=== PATIENT | female | born 1995 | race Caucasian/White ===

== ENCOUNTER 2017-03-25 11:00 | Inpatient (IN) | payer MEDICAID ==
[~2017-03-25] VITALS: Ht 168.9 cm; Wt 77.7 kg
--- NOTE | ~2017-03-25 | CN ---
PATIENT NAME:LUKE LUNA MEDICAL RECORD: [id number] : 97 LOCATION:[id number] ADMIT DATE: 03/25/17 ACCOUNT: [id number] CONSULTING PHYSICIAN: JOSE MARTIN SAUL MD REFERRING PHYSICIAN: BÁRBARA RESENDIZ MD DATE OF CONSULTATION: 03/26/2017 CARDIOLOGY CONSULTATION DIAGNOSIS: Tachycardia. HISTORY OF PRESENT ILLNESS: Mrs. Luna delivered last night. Her rate went up to the 120s. Today her heart rates in the 90s. She has not had palpitations in the past. She did not feel like palpitation. She was not hemodynamically compromised. PHYSICAL EXAMINATION: GENERAL APPEARANCE: Well-nourished, well-developed, appears stated age. Level of distress, comfortable. PSYCHIATRIC: Mental status, alert, normal affect. Orientation, oriented to time, place and person. EYES: Lids and conjunctiva, noninjected. No discharge, no pallor. ENT: Lips, teeth, gums, normal dentition. Oropharynx, no cyanosis, no pallor. NECK: Carotid arteries, bilateral normal upstroke, no bruits, no thrills. JUGULAR VEINS: No jugular venous pressure or distention. CERVICAL LYMPH NODES: Nontender, nonenlarged. THYROID: Not enlarged. Nontender. No nodules. LUNGS: Respiratory effort, unlabored. CHEST: Normal curvature. No thoracic deformity. No chest wall tenderness. Percussion, resonant. Auscultation, clear. No wheezes, no rales, no rhonchi. CARDIOVASCULAR: Precordial exam, nondisplaced. No heaves or pericardial thrills. Rate and rhythm, regular. Heart sounds, normal S1, normal S2. No S3, no gallop, no rub. Systolic murmur, not heard. Diastolic murmur, not heard. EXTREMITIES: No cyanosis, no edema. Peripheral pulses, full and equal in all extremities, except as noted. No bruits appreciated. ABDOMEN: Soft, nondistended. Normal aorta. No bruit. Nontender. No masses. Liver, nontender, no hepatomegaly. Spleen, nontender, no splenomegaly. MUSCULOSKELETAL: No joint tenderness. No joint swelling. No erythema. NEUROLOGICAL: Normal gait, normal strength, normal tone. SKIN: Warm and dry. REVIEW OF SYSTEMS: The patient reports easy bruising but reports no swollen glands. The patient reports no fever, no night sweats, no significant weight gain, no significant weight loss. No significant exercise tolerance. The patient reports no dry eyes, no irritation, no vision change. Patient reports no difficulty hearing and no ear pain. Patient reports no frequent nose bleeds or nose and sinus problems. Patient reports on arm pain on exertion. No shortness of breath while lying down. No history of heart murmur. Patient reports no cough, no wheezing or coughing up blood. Patient reports no abdominal pain, no vomiting. Normal appetite. No diarrhea and not vomiting blood. No nausea and no constipation. Patient reports no incontinence. No difficulty urinating. No hematuria. No increased frequency. Patient reports no muscle aches. No weakness, no arthralgias, no back pain. No swelling of the extremities. Patient reports no abnormal mole, no jaundice, no rashes. Reports no loss of consciousness. No weakness and no numbness. No seizures, dizziness, CONSULT REPORT [id number] WOODY,LUKE or headaches. The patient reports no depression, no sleep disturbance, feeling safe in a relationship and no alcohol abuse. Patient reports on fatigue. Reports no runny nose or sinus pressure. No itching, no hives, and no frequent sneezing. OVERALL IMPRESSION: Physiological response to labor and delivery. No other cardiac workup treatment is necessary. TRANSINT:[id number] Voice Confirmation ID: [id number] DOCUMENT ID: [id number] JOSE MARTIN SAUL MD CC: [id number] DICTATION DATE: 03/26/17 1207 HOME HEALTH CARE CASE MANAGER: 03/26/17 1751 [facility] [place] [id number] [place] [address]
[~2017-03-25 11:00] MED LIST: IBUPROFEN600 MG PO; KEFLEX500 MG PO; PERCOCET 5-3251 TAB PO
[2017-03-25] MEDS ORDERED: PRENATAL COMPLE1 TAB PO (12:28)
[2017-03-25] MEDS ORDERED: FERROUS SULFAT325 MG (12:30)
[2017-03-25 12:31] VITALS: BP 121/78; Ht 168.9 cm; Wt 77.7 kg
[2017-03-25 13:05] LABS: HEMOGLOBIN 9.6 g/dL (12-16); MCV 80.7 fL (80.0-100.0); MEAN PLATELET VOLUME 11.2 fL (7.4-10.4); RBC 3.84 10x6/uL (4.00-5.40); WBC 15.8 10x3/uL (4.8-10.8)
[2017-03-25 13:12] LABS: APPEARANCE CLOUDY (CLEAR); BILIRUBIN NEGATIVE (NEGATIVE); COLOR YELLOW (YELLOW); GLUCOSE NEGATIVE (NEGATIVE); KETONE NEGATIVE (NEGATIVE); LEUKOCYTE ESTERASE 1+ (NEGATIVE); NITRITE NEGATIVE (NEGATIVE); PROTEIN NEGATIVE (NEGATIVE); UROBILINOGEN NORMAL (NORMAL)
[2017-03-25 13:13] LABS: BACTERIA MODERATE /hpf (NONE SEEN); EPITHELIAL CELLS 25-50 /hpf (0-5); MUCUS <1+ /lpf (NONE SEEN); RED CELLS - URINE 0-5 /hpf (0-5)
[2017-03-25 19:26] VITALS: BP 129/73
--- NOTE | 2017-03-25 19:34 | NUR ---
PT RECEIVED TO MY CARE IN LDR5. PT RESTING IN BED IN HIGH FOWLERS POSITION, VISITING WITH FAMILY, IN NO ACUTE DISTRESS. PT IS A 22YO G2 NOW P2 WITH OF VIABLE MALE TODAY @ 1658. PT WITH 2ND DEGREE ML LACERATION AND REPAIR. AAOX3. HR REGULAR WITH HR 131. ABDOMEN SOFT AND NON TENDER. BS ACTIVE TIMES 4. FUNDUS FIRM AND ML @ U/-3. LOCHIA RUBRA SMALL. PERINIUM APPEARS TO BE INTACT. ROSA PAD AND PANTIES IN PLACE. PT HAS NOT VOIDED SINCE . PT TOLERATING REGULAR DIET WITHOUT DIFFICULTY. PT HAS NOT PASSED GAS SINCE OR HAD A BM. NO SWELLING NOTED TO UPPER OR LOWER EXTREMITIES BILATERALLY. PT WITH EPIDURAL CATHETER IN PLACE, NOT INFUSING. LOWER EXTREMITIES REMAIN SLIGHTLY NUMB AFTER EPIDURAL PLACEMENT. WILL WAIT TO AMBULATE. 18G SL IN RIGHT HAND, FLUSHED WITH 5CC NS WITHOUT DIFFICULTY. NO REDNESS OR EDEMA NOTED AT SITE. PT DENIES ANY PAIN AT THIS TIME. BED IN LOW POSITION, SIDE RAILS UP TIMES 2, CALL LIGHT AND PHONE IN REACH. FAMILY AT PT BS TIMES 3 FOR SUPPORT AND ASSISTANCE. WILL CONT TO MONITOR PT STATUS.
--- NOTE | 2017-03-25 20:15 | NUR ---
RN TO PT BS. PT STATES SHE FEELS SHE CAN WALK AT THIS TIME. PT AMBULATED TO BR WITH MINIMAL ASSISTANCE. PT ABLE TO VOID. PT USED BETADINE WASH WITH RN INSTRUCTION. PT CLEANED SELF WITH WARM WET WASHCLOTHES. ROSA PAD AND PANTIES PLACED. EPIDURAL REMOVED, TIP INTACT. TIP SHOWN TO PT FOR VERIFICATION. PT PLACED STREET CLOTHES. PT AMBULATED TO CLEAN PP ROOM 1257 TO CONT PP CARE. PT DENIES ANY FURTHER NEEDS AT THIS TIME. BED IN LOW POSITION, SIDE RAILS UP TIMES TWO, FAMILY AT PT BS TIMES ONE FOR SUPPORT AND ASSISTANCE. WILL CONT TO MONITOR PT STATUS.
--- NOTE | 2017-03-25 21:09 | NUR ---
RN TO PT BS FOR ROUNDS. PT SITTING ON COUCH, HOLDING . PT IN NO ACUTE DISTRESS. PT REQUESTS NEW BREAST SHIELD. PROVIDED AT THIS TIME. PT DENIES ANY FURTHER NEEDS AT THIS TIME. BED IN LOW POSITION, SIDE RAILS UP TIMES 2, CALL LIGHT AND PHONE IN REACH. MULTIPLE FAMILY MEMBERS AT PT BS FOR SUPPORT AND ASSISTANCE. WILL CONT TO MONITOR PT STATUS.
--- NOTE | 2017-03-25 21:27 | NUR ---
DR. RESENDIZ NOTIFIED OF PT HR THROUGH LABOR AND CURRENT HR. PER MD WILL OBTAIN EKG NOW AND CBC. WILL NOTIFY MD OF RESULTS.
[2017-03-25 21:39] VITALS: BP 138/79
--- NOTE | 2017-03-25 21:40 | NUR ---
ROSAMARIA WITH RESPIRATORY THERAPY AT PT BS FOR EKG.
--- NOTE | 2017-03-25 21:41 | NUR ---
EKG WITH SINUS TACH.
--- NOTE | 2017-03-25 21:43 | NUR ---
DR. RESENDIZ CALLED AND NOTIFIED OF EKG RESULTS. PER MD, WILL PERFORM CT OF CHEST PER PE PROTOCOL, GIVE PT 1L NS BOLUS, DRAW STAT CBC AND CMP, PERFORM PULSE OX READING, AND PERFORM I&O'S ON PT'S. ORDERS PLACED AND NOTED.
--- NOTE | 2017-03-25 21:50 | NUR ---
RADIOLOGY CALLED AND NOTIFIED OF NEED FOR CTA.
--- NOTE | 2017-03-25 22:03 | NUR ---
LAB RECALLED FOR BLOOD DRAW DUE TO CT REQUESTING RESULTS OF BUN AND CREATININE PRIOR TO CT SCAN. AIDE, IN LAB STATES SHE WILL COME REMY.
--- NOTE | 2017-03-25 22:08 | NUR ---
CBC AND CMP DRAWN TIMES 1 STICK BY RN TO LEFT AC WITH BUTTERFLY NEEDLE. NS BOLUS STARTED TO INFUSE VIA GRAVITY VIA 18 G IV IN RIGHT HAND. I&O INSTRUCTIONS DISCUSSED WITH PT, VERBALIZED UNDERSTANDING. POC DISCUSSED WITH PT AND MOTHER AT . QUESTIONS ANSWERED. WILL CONT TO MONITOR PT STATUS.
--- NOTE | 2017-03-25 22:13 | NUR ---
LAB HERE. CBC AND CMP SENT TO LAB FOR STAT ANALYASIS.
[2017-03-25 22:19] LABS: BASOPHILS 0.1 % (0-2); EOSINOPHILS 0.1 % (0-7); HEMATOCRIT 29.2 % (36.0-48.0); HEMOGLOBIN 9.1 g/dL (12-16); IMMATURE GRANULOCYTES 0.4 % (0-5); LYMPHOCYTES 7.8 % (15-50); MCH 25.2 pg (26.0-34.0); MCHC 31.2 g/dL (31.0-37.0); MCV 80.9 fL (80.0-100.0); MEAN PLATELET VOLUME 11.3 fL (7.4-10.4); MONOCYTES 3.3 % (2-11); NEUTROPHILS 88.3 % (40-80); PLATELET COUNT 160 10x3/uL (130-400); RBC 3.61 10x6/uL (4.00-5.40); RDW 15.1 % (11.5-14.5); WBC 18.7 10x3/uL (4.8-10.8)
[2017-03-25 22:38] LABS: ALBUMIN 2.6 g/dL (3.4-5.0); ALKALINE PHOSPHATASE 186 U/L (46-116); ALT (SGPT) 12 U/L (10-68); BILIRUBIN - TOTAL 0.23 mg/dL (0.2-1.3); CALC OSMOLALITY 279 mosm/kg (275-300); CALCIUM 8.6 mg/dL (8.5-10.1); CARBON DIOXIDE 20.9 mmol/L (21.0-32.0); CHLORIDE - SERUM 107 mmol/L (98-107); CREATININE - SERUM 0.8 mg/dL (0.6-1.3); POTASSIUM - SERUM 3.8 mmol/L (3.5-5.1); SODIUM 140 mmol/L (136-145); UREA NITROGEN 7 mg/dL (7-18); eGFR NON AFRICAN AMERICAN > 90 mL/min (90-120)
[2017-03-25 22:40] LABS: GLUCOSE 145 mg/dL (74-106)
--- NOTE | 2017-03-25 22:45 | NUR ---
CMP RESULTS REVIEWED. RADIOLOGY NOTIFIED.
--- NOTE | 2017-03-25 22:54 | NUR ---
NS BOLUS COMPLETE. 18G IV SALINE LOCKED. RADIOLOGY AT PT BS. PT TRANSFERED TO RADIOLOGY VIA FOR CTA.
[2017-03-25 23:13] VITALS: BP 137/74
--- NOTE | 2017-03-25 23:14 | NUR ---
PT RETURNS FROM RADIOLOGY. VS TAKEN, WNL. PT OUTPUT 900ML. PT DENIES ANY NEEDS AT THIS TIME. BED IN LOW POSITION, SIDE RAILS UP TIMES 2, CALL LIGHT AND PHONE IN REACH. FAMILY AT PT BS TIMES 1 FOR SUPPORT AND ASSISTANCE. REMAINS AT PT BS FOR COUPLET CARE. WILL CONT TO MONITOR PT STATUS.
--- NOTE | 2017-03-26 00:11 | NUR ---
PT CALLS, C/O PAIN, RATES 03/17. REQUESTS IBUPROFEN. PROVIDED AT THIS TIME. PT SITTING IN BED HOLDING INFANT IN NO ACUTE DISTRESS. PT DENIES ANY FURTHER NEEDS AT THIS TIME. BED IN LOW POSITION, SIDE RAILS UP TIMES 2, CALL LIGHT AND PHONE IN REACH. MOTHER AT PT BS FOR SUPPORT AND ASSISTANCE. INFANT REMAINS AT PT BS FOR COUPLET CARE.
--- NOTE | 2017-03-26 00:14 | NUR ---
REPORT RECEIVED FROM RAYS. NO PE NOTED OR OTHER CARDIOPULMONARY DISEASE. DR. RESENDIZ NOTIFIED. PER MD NO NEW ORDERS RECEIVED. WILL CONSULT CARDIOLOGY IN AM. PT AND FAMILY NOTIFIED.
--- NOTE | 2017-03-26 02:16 | NUR ---
RN TO PT BS FOR ROUNDS. PT RESTING IN BED IN LEFT LATERAL POSITION, HOLDING , IN NO ACUTE DISTRESS. PT DENIES ANY NEEDS AT THIS TIME. BED IN LOW POSITION, SIDE RAILS UP TIMES 2, CALL LIGHT AND PHONE IN REACH. FAMILY AT PT BS TIMES 1 FOR SUPPORT AND ASSISTANCE. INFANT REMAINS AT PT BS FOR COUPLET CARE. WILL CONT TO MONITOR PT STATUS.
--- NOTE | 2017-03-26 03:27 | NUR ---
RN CALLED TO PT BS. PT REQUESTS CUP OF ICE. PROVIDED. PT DENIES ANY FURTHER NEEDS AT THIS TIME. BED IN LOW POSITION, SIDE RAILS UP TIMES 2, CALL LIGHT AND PHONE IN REACH. MOTHER REMAINS AT PT BS FOR SUPPORT AND ASSISTANCE. WILL CONT TO MONITOR PT STATUS.
[2017-03-26 06:20] LABS: BASOPHILS 0.1 % (0-2); EOSINOPHILS 0.4 % (0-7); HEMATOCRIT 27.2 % (36.0-48.0); HEMOGLOBIN 8.2 g/dL (12-16); IMMATURE GRANULOCYTES 0.5 % (0-5); MCH 24.6 pg (26.0-34.0); MCHC 30.1 g/dL (31.0-37.0); MCV 81.7 fL (80.0-100.0); MEAN PLATELET VOLUME 11.8 fL (7.4-10.4); MONOCYTES 5.9 % (2-11); NEUTROPHILS 79.1 % (40-80); PLATELET COUNT 162 10x3/uL (130-400); RBC 3.33 10x6/uL (4.00-5.40); RDW 15.1 % (11.5-14.5); WBC 15.2 10x3/uL (4.8-10.8)
--- NOTE | 2017-03-26 06:20 | NUR ---
RN TO PT BS FOR ROUNDS. PT RESTING IN BED IN SEMI-FOWLERS POSITION PREPARING TO BREASTFEED . NURSERY RN AT PT BS HELPING PT BREASTFEED. PT IN NO ACUTE DISTRESS. PT DENIES ANY NEEDS AT THIS TIME. BED IN LOW POSITION, SIDE RAILS UP TIMES 2, CALL LIGHT AND PHONE IN REACH. FAMILY AT PT BS TIMES 1 FOR SUPPORT AND ASSISTANCE. REMAINS AT PT BS FOR COUPLET CARE. WILL CONT TO MONITOR PT STATUS AND GIVE REPORT TO AM SHIFT.
[2017-03-26 07:30] VITALS: BP 116/70
--- NOTE | 2017-03-26 07:30 | NUR ---
ASSESSMENT DONE. SITTING UP IN BED. VERBAL RESPONSES APPRO TO QUESTIONS. MENDOZA AT WILL. AMBULATES ABOUT IN ROOM DESIRED. MHR CHECKED - 86.
--- NOTE | 2017-03-26 08:02 | NUR ---
DR WHITTEN TO ROOM TO SEE PT.
--- NOTE | 2017-03-26 08:21 | NUR ---
PHINIDIA SAUL OFFICE AND INFORMED OF CARDIOLOGY CONSULT REQUEST. OFFICE PERSONNELL STATES THAT SHE WILL CALL DR SAUL AND LET HIM KNOW.
--- NOTE | 2017-03-26 09:28 | NUR ---
SITTING UP IN BED TALKING ON CELL PHONE. MHR USING STETHOSCOPE 88. MHR WITH PULSE OX 89. O2 SAT- 98. PT DENIES NEEDS. INFORMED THAT WHEN READY TO SHOWER TO CALL NURSE AND WILL CHANGE LINENS. PT MOTHER AT BEDSIDE. DENIES PAIN AT THIS TIME.
[2017-03-26 11:45] VITALS: BP 127/73
--- NOTE | 2017-03-26 12:05 | NUR ---
DR SAUL IN UNIT- REVIEWS PT CHART. REVIEWS VS FROM TODAY. STATES NORMAL PHYSIOLOGIC RESPONSE. NO ORDERS RECEIVED.
--- NOTE | 2017-03-26 12:20 | NUR ---
PT INFORMED THAT DR SAUL WAS IN AND REVIEWED RECORDS. PT STATES WHEN ASK THAT SHE WOULD RATHER GO HOME THIS EVENING THAN WAIT UNTIL THE MORNING.
--- NOTE | 2017-03-26 12:31 | NUR ---
DR WHITTEN CALLS UNTIL REGARDS TO ANOTHER PT. WHILE ON PHONE WITH MD, REPORT GIVEN THAT DR SAUL HAS BEEN TO REVIEW PT'S CHART AND HAS CLEARED PT OF CARDIAC ISSUSES. MD QUESTIONED IF PT REQUEST TO BE DISCHARGED HOME TODAY, MAY PT HAVE A DISCHARGE ORDER. MD GIVES ORDER PT MAY BE DISCHARGE WITH .
--- NOTE | 2017-03-26 13:46 | NUR ---
ASLEEP RESTING ON RT SIDE. MOTHER AT BEDSIDE.
[2017-03-26] MEDS ORDERED: HYDROCODON-ACE1 EAC7 PO (13:51)
[2017-03-26] MEDS ORDERED: IBUPROFEN600 MG PO (13:52)
--- NOTE | 2017-03-26 14:00 | NUR ---
SALINE LOCK REMOVED WITH CATH INTACT. PRESSURE HELD AND BANDAIDE APPLIED.
--- NOTE | 2017-03-26 14:14 | NUR ---
awake- rings call light- requesting ibuprofen again for cramping. rates pain a 3-4 on scale of 0-10.
--- NOTE | 2017-03-26 16:21 | NUR ---
pt shower done. tucks pads and dermaplast given. pt instructed on use- states she used dermaplast with last delivery. states feels better after shower.
[2017-03-26 16:22] VITALS: BP 131/61
--- NOTE | 2017-03-26 17:00 | NUR ---
DISCHARGE INST VERBAL AND WRITTEN GIVEN. PHYSICIAN FOR WOMEN POST INST GIVEN. PRESCRIPTIONS X2, PT MED REC, MEDICATION INFO SHEETS GIVEN TO PT. DISCHARGE INST- POST PART VAG DEL, PP DEPRESSION, BREAT FEEDING GIVEN INFO TO PT. PT HEALTH SUMMARY GIVEN. PT DENIES QUESTIONS.
[2017-03-27 06:13] LABS: RAPID PLASMA REAGIN Non Reactive (Non Reactive)
== END 2017-03-26 18:35 | disposition home or self-care (01) | DRG 774 ==
LOC: D.LDO 11:00 → D.LD 12:27
PROVIDERS: ADMIT Obstetrics & Gynecology
PROC: 10E0XZZ Delivery of Products of Conception, External Approach (ICD-10-PCS; principal; 2017-03-25)
PROC: 0KQM0ZZ Repair Perineum Muscle, Open Approach (ICD-10-PCS; 2017-03-25)
DX: O70.1 Second degree perineal laceration during delivery (principal); O99.42 Diseases of the circulatory system complicating childbirth; Z37.0 Single live birth; Z3A.39 39 weeks gestation of pregnancy; R00.0 Tachycardia, unspecified